=== PATIENT | female | born 1985 | race Caucasian/White ===

== ENCOUNTER 2018-02-07 11:40 | Emergency (ER) | payer MEDICAID ==
[2018-02-07 13:10] LABS: URINE BLOOD (Dip) POC Trace-intact (NEGATIVE); URINE GLUCOSE (Dip) POC Negative (NEGATIVE); URINE KETONES (Dip) POC Negative (NEGATIVE); URINE LEUKOCYTE EST (Dip) POC 1+ (NEGATIVE); URINE NITRITE (Dip) POC Negative (NEGATIVE); URINE TOTAL PROTEIN POC Negative (NEGATIVE)
[2018-02-07] MEDS: KETOROLAC 15 MG INJ IM (13:20)
== END 2018-02-07 15:13 | disposition home or self-care (01) ==
LOC: FTE 11:40
DX: M54.5 Low back pain (principal); I10 Essential (primary) hypertension
CPT/HCPCS: 72100; 81003; 81025; 96372; 99284-25